=== PATIENT | male | born 1970 | race Caucasian/White ===

== ENCOUNTER 2016-12-08 10:41 | Emergency (ER) | payer OTHER ==
[~2016-12-08] VITALS: Ht 177.8 cm; Wt 127.0 kg
[~2016-12-08 10:41] MED LIST: ALBUTEROL SULF8.5 GM INH; AZITHROMYCIN250 MG ORAL; FLOMAX0.4 MG ORAL; FUROSEMIDE20 M1 ORAL; HYDROCODONE-HOMA5 ML PO; KEFLEX500 MG ORAL; NITROLINGUAL4.9 GM TL; NKM; NORCO 5-325 TA1 EAC1 ORAL; NORCO 5-325 TA1 EACH ORAL; PHENERGAN6.25 MG/5 ORAL; PREDNISONE10 MG ORAL; PREDNISONE20 MG ORAL; TRAMADOL HCL50 MG ORAL; ZITHROMAX250 MG ORAL
[2016-12-08] MEDS ORDERED: FUROSEMIDE40 MG ORAL (10:59)
[2016-12-08 11:03] VITALS: BP 116/80
[2016-12-08] MEDS ORDERED: LASIX20 M1 ORAL (11:20)
--- NOTE | 2016-12-08 11:21 | Emergency Room Report ---
History of Present Illness General Chief Complaint: General Complaint Source: Patient Present Illness HPI The patient presents with L leg edema requesting a refill of Lasix. He states there is no pain. He has had this multiple times and has been unable to secure an MD. He denies trauma, cough, chest pain, hemoptysis. Has had non-invasive studies excluding DVT (06/21). Smokes and has smoker's cough and wheezing on occasion. States is out of inhaler. Suggests he likes stronger pain medicine. No NVD, dysuria. Allergies: Coded Allergies: No Known Allergies (Unverified , 01/29/15) Patient History Past Medical History: see triage record, old chart reviewed Social History: Reports: smoking Social History Narrative working - though listed as unemployed Reviewed Nursing Documentation: PMH: Agreed, PSxH: Agreed Nursing Documentation-PMH Hx Hypertension: No Hx Pacemaker: No Hx Asthma: Yes Hx Diabetes: No Hx Cancer: No Hx Gastrointestinal Problems: No Hx Dialysis: No Hx Neurological Problems: No Hx Cerebrovascular Accident: No Hx Seizures: No Review of Systems All Other Systems: negative except mentioned in HPI Physical Exam Vital Signs Date Time Temp Pulse Resp B/P Pulse Ox O2 Delivery O2 Flow Rate FiO2 12/08/16 10:54 98.1 78 14 116/80 99 Room Air Sp02 EP Interpretation: reviewed, normal General Appearance: well appearing, no apparent distress, GCS 15 Head: normocephalic, atraumatic ENT: hearing grossly normal, normal voice Neck: full range of motion, supple Respiratory: lungs clear, normal breath sounds, no respiratory distress, speaking full sentences Cardiovascular #1: regular rate, rhythm, edema - L leg 2 + pitting Gastrointestinal: overweight Musculoskeletal: digits/nails normal, gait/station normal, normal range of motion, no calf tenderness, other - Aly's neg Neurologic: alert, normal gait, grossly normal Psychiatric: mood/affect normal, other - slightly pressured stating he has to leave for a job Skin: no rash, other - no erythema leg Medical Decision Making Diagnostic Impression: Primary Impression: Edema Qualified Codes: R60.9 - Edema, unspecified ER Course Patient with L leg edema requesting lasix. Ddx: DVT, lymphedema, renal insufficiency, malnutrition, cor pulmonale amongst others. Review of labs unremarkable. Prior DVT study negative. Patient not want labs or further w/u saying he has to go to a job. Patient stable for outpatient observation and treatment. Last Vital Signs Date Time Temp Pulse Resp B/P Pulse Ox O2 Delivery O2 Flow Rate FiO2 12/08/16 11:41 98.1 14 116/80 99 Room Air 12/08/16 10:54 78 Status: unchanged Disposition: HOME, SELF-CARE Condition: Improved Scripts Albuterol Sulfate* (ALBUTEROL SULFATE MDI*) 8.5 Gm Hfa.aer.ad 2 PUFF INH Q6H, #1 INH 0 Refills Prov: Ignacio Vasquez M.D. 12/08/16 Furosemide* (LASIX*) 20 Mg Tablet 20 MG ORAL DAILY, #15 TAB Prov: Ignacio Vasquez M.D. 12/08/16 Patient Instructions: Edema Additional Instructions: See your MD villa. Ignacio Vasquez M.D. Dec 08, 2016 11:21
[2016-12-08] MEDS ORDERED: ALBUTEROL SULF8.5 GM INH (11:23)
[2016-12-08 11:41] VITALS: BP 116/80
== END 2016-12-08 11:44 | disposition home or self-care (01) ==
LOC: EMR 11:17
DX: R60.0 Localized edema (principal); J45.909 Unspecified asthma, uncomplicated; F17.200 Nicotine dependence, unspecified, uncomplicated
CPT/HCPCS: 99284

== ENCOUNTER 2016-12-24 18:19 | Emergency (ER) | payer OTHER ==
[~2016-12-24] VITALS: Ht 177.8 cm; Wt 129.7 kg
[~2016-12-24 18:19] MED LIST changes: +FUROSEMIDE40 MG ORAL; +LASIX20 M1 ORAL
[2016-12-24 18:22] VITALS: BP 125/69
[2016-12-24] MEDS ORDERED: DuoNeb 0.5-3(2.5)mg/3ml neb HHN ONE (18:45)
[2016-12-24] MEDS ORDERED: PROMETHAZINE-D118 ML ORAL (18:51)
[2016-12-24] MEDS ORDERED: PREDNISONE20 MG ORAL (18:51)
[2016-12-24] MEDS ORDERED: ALBUTEROL SULF8.5 GM INH (18:51)
--- NOTE | 2016-12-24 19:09 | Emergency Room Report ---
History of Present Illness General Chief Complaint: Upper Respiratory Illness Source: Patient Present Illness [facility] The patient is a 46 year-old male who presented after having increased cough and difficulty breathing. Patient gradual onset of symptoms. Patient was noted to have recent upper respiratory symptoms. The patient had reported no recent fever. He reported having some nonproductive cough. He's had similar episodes in the past. Allergies: Coded Allergies: No Known Allergies (Unverified , 01/29/15) Patient History Past Medical History: see triage record Reviewed Nursing Documentation: PMH: Agreed, PSxH: Agreed Nursing Documentation-PMH Past Medical History: No History, Except For Hx Hypertension: No Hx Pacemaker: No Hx Asthma: Yes Hx Diabetes: No Hx Cancer: No Hx Gastrointestinal Problems: No Hx Dialysis: No Hx Neurological Problems: No Hx Cerebrovascular Accident: No Hx Seizures: No Review of Systems All Other Systems: negative except mentioned in HPI Physical Exam Vital Signs Date Time Temp Pulse Resp B/P Pulse Ox O2 Delivery O2 Flow Rate FiO2 12/24/16 18:22 98.1 75 15 125/69 98 Room Air 12/24/16 18:45 21 General Appearance: well appearing, no apparent distress, alert, GCS 15 Head: normocephalic, atraumatic ENT: hearing grossly normal, normal voice Neck: full range of motion, supple Respiratory: normal inspection, no respiratory distress, speaking full sentences, wheezing Cardiovascular #1: normal peripheral pulses, regular rate, rhythm, no edema Gastrointestinal: normal inspection, non tender Musculoskeletal: normal inspection, digits/nails normal, no calf tenderness Neurologic: normal inspection, alert, oriented x3, lens cutter III-XII nml as tested, normal gait Psychiatric: mood/affect normal Skin: no rash Medical Decision Making Diagnostic Impression: Primary Impression: Bronchitis ER Course Patient presented for bronchitis.Differential diagnosis included but was not limited to bronchitis, pneumonia, pulmonary embolism, pericarditis, asthma, foreign body. Because of complexity of patient's case imaging studies were ordered. EKG interpreted by me showed normal sinus rhythm with a rate of [address] or T wave changes.The patient was given a breathing treatment with DuoNeb.Patient appears to have bronchitis. Chest x-ray showed no evidence of infiltrate. The patient had improvement with breathing treatment. The patient is advised to follow up with primary care doctor in 1-2 days. Patient is advised to return if any worsening condition or if any changes in status that are concerning. EKG Diagnostic Results Rate: normal - 96 Rhythm: NSR ST Segments: no acute changes Chest X-Ray Diagnostic Results EP Interpretation: Yes Findings: no consolidation, no effusion, no pneumothorax, no acute cardiopulmonary disease Number of Views: 1 Last Vital Signs Date Time Temp Pulse Resp B/P Pulse Ox O2 Delivery O2 Flow Rate FiO2 12/24/16 18:53 90 20 100 Room Air 21 12/24/16 18:22 98.1 125/69 Status: improved Disposition: HOME, SELF-CARE Condition: Stable Scripts D-Methorphan Hb/Prometh Hcl* (PROMETHAZINE-DM SYRUP*) 118 Ml Syrup 5 ML ORAL Q6H Y for For Cough, #118 ML 0 Refills Prov: Erik Dyson 12/24/16 Prednisone* (PREDNISONE*) 20 Mg Tablet 20 MG ORAL DAILY, #5 TAB 0 Refills Prov: Erik Dyson 12/24/16 Albuterol Sulfate* (ALBUTEROL SULFATE MDI*) 8.5 Gm Hfa.aer.ad 2 PUFF INH Q4H Y for cough/wheezing, #1 EA 0 Refills Prov: Erik Dyson 12/24/16 Referrals: [facility],REFERRING (PCP) Patient Instructions: Chronic Bronchitis Erik Dyson Dec 24, 2016 19:09
[2016-12-24] MEDS ORDERED: ZITHROMAX250 MG ORAL (19:11)
[2016-12-24 19:24] VITALS: BP_SYST 125; BP_SYST 132; BP_DIAS 69; BP_DIAS 78
--- NOTE | 2016-12-25 08:58 | Diagnostic Imaging Report ---
Clinical history: Shortness of breath Technique: Portable AP chest radiograph was obtained. Comparison: 11/07/15. Findings: Lung volumes are low with probable basilar atelectasis. There is no focal consolidation to suggest pneumonia. There is no overt pulmonary edema. There is no pleural effusion or pneumothorax. The cardiac and mediastinal silhouettes are normal in appearance. The bony thorax is unremarkable. Impression: Low lung volumes with probable basilar atelectasis. No evidence of pneumonia.
--- NOTE | 2016-12-26 10:54 | Cardiology Report ---
APPROVED REPORT EKG Measurement Heart [id number] Normal sinus rhythm Normal ECG
== END 2016-12-24 19:24 | disposition home or self-care (01) ==
LOC: EMR 18:51
DX: J45.909 Unspecified asthma, uncomplicated (principal)
CPT/HCPCS: 71010; 93005; 94640; 94664; 99284; J7620

== ENCOUNTER 2018-04-29 00:14 | Emergency (ER) | payer OTHER ==
[~2018-04-29] VITALS: Ht 177.8 cm; Wt 133.8 kg
[~2018-04-29 00:14] MED LIST changes: +PROMETHAZINE-D118 ML ORAL
[2018-04-29 00:44] VITALS: BP 130/83
[2018-04-29 01:32] LABS: BASOPHILS % (AUTO) 0.6 % (0.0-2.0); HEMATOCRIT 47.1 % (42.0-52.0); HEMOGLOBIN 15.3 G/DL (14.2-18.0); LYMPHOCYTES % (AUTO) 30.9 % (20.0-45.0); MEAN CORPUSCULAR VOLUME 84 FL (80-99); MONOCYTES % (AUTO) 6.3 % (1.0-10.0); NEUTROPHILS % (AUTO) 60.3 % (45.0-75.0); PLATELET COUNT 202 K/UL (150-450); RED BLOOD COUNT 5.63 M/UL (4.70-6.10); RED CELL DISTRIBUTION WIDTH 12.7 % (11.6-14.8); WHITE BLOOD COUNT 12.5 K/UL (4.8-10.8)
[2018-04-29 01:41] LABS: INR 1.1 (0.9-1.1)
[2018-04-29 01:45] LABS: ANION GAP 9 mmol/L (5-15); BLOOD UREA NITROGEN 17 mg/dL (7-18); CALCIUM 9.4 MG/DL (8.5-10.1); CARBON DIOXIDE 28 MMOL/L (21-32); CHLORIDE 105 MMOL/L (98-107); CREATININE 1.2 MG/DL (0.55-1.30); POTASSIUM 3.7 MMOL/L (3.5-5.1); SODIUM 142 MMOL/L (136-145)
[2018-04-29 01:56] LABS: ALANINE AMINOTRANSFERASE 39 U/L (12-78); ALBUMIN 3.8 G/DL (3.4-5.0); ALKALINE PHOSPHATASE 67 U/L (46-116); ASPARTATE AMINO TRANSFERASE < 5 U/L (15-37); BILIRUBIN,TOTAL 0.2 MG/DL (0.2-1.0); CREATINE KINASE 97 U/L (26-308)
--- NOTE | 2018-04-29 02:32 | Emergency Room Report ---
History of Present Illness General Chief Complaint: Edema Source: Patient Present Illness HPI Patient presents with edema and pain in his left lower leg. He is on Lasix. The leg is swollen. He has swelling bilaterally however the pain is somewhat worse on the left-hand side. He denies previous DVT there. He's undergone noninvasive studies in the past which have been negative. He does have potassium at home. He rates the pain 9/10, aching/burning and worse when feet down. He states he does not want pain medicine. The patient's also had some mild chest discomfort recently. The patient denies any fevers, chills, dysuria, nausea, vomiting, diarrhea, orthopnea. At the onset the patient states he will not be staying in the hospital and does not want labs. He cares for his with stage IV cancer. He brought his son for a head injury and decided to be seen. Allergies: Coded Allergies: No Known Allergies (Unverified , 01/29/15) Patient History Past Medical History: see triage record Social History: Reports: smoking Social History Narrative at home Reviewed Nursing Documentation: PMH: Agreed; PSxH: Agreed Nursing Documentation-PMH Past Medical History: No History, Except For Hx Hypertension: No Hx Pacemaker: No Hx Asthma: Yes Hx Diabetes: No Hx Cancer: No Hx Gastrointestinal Problems: No Hx Dialysis: No Hx Neurological Problems: No Hx Cerebrovascular Accident: No Hx Seizures: No Review of Systems All Other Systems: negative except mentioned in HPI Physical Exam Vital Signs Date Time Temp Pulse Resp B/P (MAP) Pulse Ox O2 Delivery O2 Flow Rate FiO2 04/29/18 00:20 97.9 95 16 130/83 95 Room Air 97.9 Sp02 EP Interpretation: reviewed, normal General Appearance: well appearing, no apparent distress, GCS 15 Head: normocephalic Eyes: bilateral eye normal inspection, bilateral eye PERRL ENT: moist mucus membranes Neck: supple Respiratory: lungs clear, normal breath sounds Cardiovascular #1: regular rate, rhythm, edema - bilat, worse on L Cardiovascular #2: 2+ radial (R) Gastrointestinal: normal inspection, normal bowel sounds, non tender, no mass, non-distended, overweight Musculoskeletal: back normal, gait/station normal, normal range of motion, no calf tenderness, pelvis stable, Aly's Sign negative, swelling Neurologic: alert, oriented x3, motor strength/tone normal, sensory intact, grossly normal Psychiatric: mood/affect normal Skin: normal inspection, warm/dry Medical Decision Making Diagnostic Impression: Primary Impression: Edema Qualified Codes: R60.9 - Edema, unspecified ER Course Patient off of lasix and c/w pain and swelling of legs, worse on L. DDx: DVT, edema, renal failure, electrolyte abnormalities, cellulitis amongst others. By exam, non-invasive studies not needed. No h/o trauma either. Labs needed to assess electrolytes and renal function. Will check EKG and CXR. Labs with sl leukocytosis, nl CMP, coags and tox. Diuresing here. Improved. Requests Rx lasix. Told needs to f/u with his MD. Patient stable for outpatient observation and treatment. Laboratory Tests Test 04/29/18 01:18 04/29/18 01:40 White Blood Count 12.5 K/UL (4.8-10.8) H Red Blood Count 5.63 M/UL (4.70-6.10) Hemoglobin 15.3 G/DL (14.2-18.0) Hematocrit 47.1 % (42.0-52.0) Mean Corpuscular Volume 84 FL (80-99) Mean Corpuscular Hemoglobin 27.2 PG (27.0-31.0) Mean Corpuscular Hemoglobin Concent 32.5 G/DL (32.0-36.0) Red Cell Distribution Width 12.7 % (11.6-14.8) Platelet Count 202 K/UL (150-450) Mean Platelet Volume 8.7 FL (6.5-10.1) Neutrophils (%) (Auto) 60.3 % (45.0-75.0) Lymphocytes (%) (Auto) 30.9 % (20.0-45.0) Monocytes (%) (Auto) 6.3 % (1.0-10.0) Eosinophils (%) (Auto) 2.0 % (0.0-3.0) Basophils (%) (Auto) 0.6 % (0.0-2.0) Prothrombin Time 11.4 SEC (9.30-11.50) Prothrombin Time INR 1.1 (0.9-1.1) PTT 30 SEC (23-33) Sodium Level 142 MMOL/L (136-145) Potassium Level 3.7 MMOL/L (3.5-5.1) Chloride Level 105 MMOL/L (98-107) Carbon Dioxide Level 28 MMOL/L (21-32) Anion Gap 9 mmol/L (5-15) Blood Urea Nitrogen 17 mg/dL (7-18) Creatinine 1.2 MG/DL (0.55-1.30) Estimate Glomerular Filtration Rate > 60 mL/min (>60) Glucose Level 119 MG/DL (74-106) H Calcium Level 9.4 MG/DL (8.5-10.1) Total Bilirubin 0.2 MG/DL (0.2-1.0) Aspartate Amino Transferase (AST) < 5 U/L (15-37) L Alanine Aminotransferase (ALT) 39 U/L (12-78) Alkaline Phosphatase 67 U/L (46-116) Total Creatine Kinase 97 U/L (26-308) Troponin I 0.000 ng/mL (0.000-0.056) Pro-B-Type Natriuretic Peptide 71 pg/mL (0-125) Total Protein 7.7 G/DL (6.4-8.2) Albumin 3.8 G/DL (3.4-5.0) Globulin 3.9 g/dL Albumin/Globulin Ratio 1.0 (1.0-2.7) Urine Opiates Screen Negative (NEGATIVE) Urine Barbiturates Screen Negative (NEGATIVE) Phencyclidine (PCP) Screen Negative (NEGATIVE) Urine Amphetamines Screen Negative (NEGATIVE) Urine Benzodiazepines Screen Negative (NEGATIVE) Urine Cocaine Screen Negative (NEGATIVE) Urine Marijuana (THC) Screen Negative (NEGATIVE) EKG Diagnostic Results Rate: normal Rhythm: NSR ST Segments: no acute changes Rhythm Strip Diag. Results EP Interpretation: yes Rhythm: NSR, no PVC's, no ectopy Chest X-Ray Diagnostic Results Chest X-Ray Diagnostic Results : Chest X-Ray Ordered: Yes # of Views/Limited/Complete: 1 View Indication: Other EP Interpretation: Yes Interpretation: no consolidation, no effusion, no pneumothorax Impression: No acute disease Electronically Signed by: Electronically signed by Ignacio Vasquez MD VS reviewed and improved. Status: improved Disposition: HOME, SELF-CARE Condition: Improved Scripts Furosemide* (LASIX*) 40 Mg Tablet 40 MG ORAL DAILY, #30 TAB Prov: Ignacio Vasquez M.D. 04/29/18 Referrals: NOT CHOSEN [facility]/,REFERRING (PCP) Ignacio Vasquez M.D. Apr 29, 2018 02:32
[2018-04-29] MEDS ORDERED: FUROSEMIDE40 MG ORAL (02:34)
[2018-04-29 02:55] VITALS: BP 122/67
--- NOTE | 2018-04-29 03:20 | Diagnostic Imaging Report ---
EXAM: XR Chest, 1 View CLINICAL HISTORY: CP TECHNIQUE: Frontal view of the chest. COMPARISON: No relevant prior studies available. FINDINGS: Lungs: Unremarkable. No consolidation. Pleural space: Unremarkable. No pneumothorax. Heart: Unremarkable. No cardiomegaly. Mediastinum: Unremarkable. Bones/joints: Unremarkable. IMPRESSION: Normal chest x-ray.
--- NOTE | 2018-05-02 15:21 | Cardiology Report ---
APPROVED REPORT EKG Measurement Heart [id number] Normal sinus rhythm Normal ECG
== END 2018-04-29 02:58 | disposition home or self-care (01) ==
LOC: EMR 00:46
DX: R60.0 Localized edema (principal); J45.909 Unspecified asthma, uncomplicated
CPT/HCPCS: 36415; 71045; 80053; 80307; 82550; 83880; 84484; 85025; 85610; 85730; 93005; 96374; 99283; J1940